=== PATIENT | female | born 1965 ===

== ENCOUNTER 2018-05-28 19:37 | Outpatient (CLI) | payer SELFPAY | END 2018-05-28 19:38 | disposition home or self-care (01) | LOC: C.SLEEP 19:37 ==

== ENCOUNTER 2018-06-19 09:26 | Outpatient (CLI) | payer OTHER | END 2018-06-19 09:27 | disposition home or self-care (01) | LOC: C.RT 09:26 | DX: R06.09 Other forms of dyspnea (principal) ==

== ENCOUNTER 2018-08-20 19:41 | Outpatient (CLI) | payer SELFPAY | END 2018-08-20 19:42 | disposition home or self-care (01) | LOC: C.SLEEP 19:42 ==